=== PATIENT | female | born 1970 | race Caucasian/White ===

== ENCOUNTER 2017-11-06 02:22 | Emergency (ER) | payer MEDICAID ==
[~2017-11-06] VITALS: Ht 170.2 cm; Wt 101.5 kg
[~2017-11-06 02:22] MED LIST: ONDA8TAB9 PO
[2017-11-06 02:27] VITALS: BP 139/79
[2017-11-06] MEDS ORDERED: proparacaine 0.5% ophthalmic drops 15ml RIGHTEYE ONE (02:40)
[2017-11-06] MEDS ORDERED: benoxinate/fluorescein ophth drops 5ml bottle RIGHTEYE ONE (02:45)
== END 2017-11-06 04:06 | disposition home or self-care (01) ==
LOC: ER 02:23
DX: H57.11 Ocular pain, right eye (principal); Z56.0 Unemployment, unspecified; Z88.8 Allergy status to other drugs, medicaments and biological substances
CPT/HCPCS: 99282; J7030

== ENCOUNTER 2018-01-16 15:40 | Emergency (ER) | payer MEDICAID ==
[~2018-01-16] VITALS: Ht 170.2 cm; Wt 100.7 kg
[2018-01-16 15:43] VITALS: BP 132/76
== END 2018-01-16 16:57 | disposition home or self-care (01) ==
LOC: ER 15:41
DX: S60.222A Contusion of left hand, initial encounter (principal); Z88.8 Allergy status to other drugs, medicaments and biological substances; Z79.899 Other long term (current) drug therapy; Z56.0 Unemployment, unspecified; W01.0XXA Fall on same level from slipping, tripping and stumbling without subsequent striking against object, initial encounter; Y93.89 Activity, other specified; Y92.89 Other specified places as the place of occurrence of the external cause; Y99.8 Other external cause status
CPT/HCPCS: 73140; 99284

== ENCOUNTER 2018-07-15 11:44 | Emergency (ER) | payer MEDICAID ==
[~2018-07-15] VITALS: Ht 170.2 cm; Wt 99.8 kg
[2018-07-15 12:16] VITALS: BP 121/84
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
[2018-07-15] MEDS ORDERED: TRAM50TA2 PO (13:57)
== END 2018-07-15 14:14 | disposition home or self-care (01) ==
LOC: ER 11:44
DX: R51 Headache (principal); Z56.0 Unemployment, unspecified; Z88.8 Allergy status to other drugs, medicaments and biological substances
CPT/HCPCS: 99283

== ENCOUNTER 2018-10-25 14:58 | Outpatient (CLI) | payer MEDICARE, MEDICAID | END 2018-10-25 23:59 | disposition home or self-care (01) | LOC: VAS 14:58 | PROVIDERS: ATTEND Family Medicine | DX: R60.0 Localized edema (principal); M79.604 Pain in right leg; F17.200 Nicotine dependence, unspecified, uncomplicated | CPT/HCPCS: 93970 ==

== ENCOUNTER 2018-11-06 19:17 | Emergency (ER) | payer MEDICARE, MEDICAID ==
[~2018-11-06] VITALS: Ht 170.2 cm; Wt 104.5 kg
[2018-11-06 19:27] VITALS: BP 140/88
[2018-11-06] MEDS ORDERED: HYDROcodone/acetaminophen 5mg/325mg tablet PO ONE (20:50)
[2018-11-06] MEDS ORDERED: TRAM50TA2 PO (21:42)
== END 2018-11-06 22:08 | disposition home or self-care (01) ==
LOC: ER 19:17
DX: M79.604 Pain in right leg (principal); F17.200 Nicotine dependence, unspecified, uncomplicated; Z56.0 Unemployment, unspecified; Z88.6 Allergy status to analgesic agent; Z79.899 Other long term (current) drug therapy
CPT/HCPCS: 93971; 99284

== ENCOUNTER 2019-02-28 12:14 | Emergency (ER) | payer MEDICARE, MEDICAID ==
[~2019-02-28] VITALS: Ht 170.2 cm; Wt 105.0 kg
[2019-02-28 12:16] VITALS: BP 101/76
== END 2019-02-28 14:51 | disposition left against medical advice (07) ==
LOC: ER 12:14
DX: M79.606 Pain in leg, unspecified (principal); Z53.21 Procedure and treatment not carried out due to patient leaving prior to being seen by health care provider

== ENCOUNTER 2019-09-06 07:41 | Emergency (ER) | payer MEDICARE, MEDICAID ==
[~2019-09-06] VITALS: Ht 170.2 cm; Wt 96.6 kg
[2019-09-06 07:54] VITALS: BP 117/73
--- NOTE | 2019-09-06 08:21 | NUR ---
Pt also states rthat she believes she may be . Has also been around someone with similar symptoms.
[2019-09-06 08:40] LABS: BASOPHILS % (AUTO) 0.2 % (0-1); EOSINOPHILS # (AUTO) 0.2 X10'3 (0-0.9); EOSINOPHILS % (AUTO) 1.9 % (0-6); HEMOGLOBIN 13.4 g/dl (12.0-16.0); LYMPHOCYTES # (AUTO) 0.7 X10'3 (1.1-4.8); MEAN CORPUSCULAR HEMOGLOBIN 28.6 PG (27.0-31.0); MEAN CORPUSCULAR HGB CONC 33.6 g/dL (33.0-36.5); MEAN CORPUSCULAR VOLUME 85.1 FL (78-98); MEAN PLATELET VOLUME 8.1 FL (7.4-10.4); MONOCYTES # (AUTO) 0.4 X10'3 (0-0.9); MONOCYTES % (AUTO) 4.8 % (2-12); NEUTROPHILS # (AUTO) 7.2 X10'3 (1.8-7.7); NEUTROPHILS % (AUTO) 85.1 % (42-75); PLATELET COUNT 240 X10'3 (140-440); RED CELL DISTRIBUTION WIDTH 14.6 % (11.5-14.5); WHITE BLOOD COUNT 8.5 X10'3 (4.5-11.0)
[2019-09-06] MEDS ORDERED: LIDOcaine Viscous 15ml cup MM STA (08:47)
[2019-09-06] MEDS ORDERED: mag hydrox/Alum hydrox/simeth 30ml oral suspension PO ONE (08:50)
[2019-09-06] MEDS ORDERED: ondansetron 4mg rapidly disintigrating tab PO ONE (08:50)
[2019-09-06 09:00] LABS: ALANINE AMINOTRANSFERASE 30 U/L (12-78); ALBUMIN 3.5 G/DL (3.4-5.0); ALKALINE PHOSPHATASE 117 IU/L (46-116); ANION GAP 5 (8-16); ASPARTATE AMINO TRANSFERASE 21 U/L (10-37); BILIRUBIN,TOTAL 1.7 MG/DL (0.1-1.0); BLOOD UREA NITROGEN 21 MG/DL (7-18); BUN/CREATININE RATIO 25.6 (6.6-38.0); CALCIUM 8.3 MG/DL (8.5-10.1); CHLORIDE 107 MMOL/L (99-107); CREATININE 0.82 MG/DL (0.40-0.90); GLUCOSE 87 MG/DL (70-104); LIPASE 100 U/L (73-393); POTASSIUM 4.2 MMOL/L (3.5-5.1); SODIUM 141 MMOL/L (135-145); TOTAL CARBON DIOXIDE 29.1 MMOL/L (24-32); eGFR 75 ML/MIN
[2019-09-06 10:03] LABS: CLARITY,URINE SLIGHTLY CLOUDY (Clear); COLOR,URINE YELLOW (Yellow); GLUCOSE, URINE NEGATIVE (Neg); KETONES,URINE NEGATIVE (Neg); LEUKOCYTE ESTERASE ,URINE MODERATE (Neg); NITRITES, URINE NEGATIVE (Neg); OCCULT BLOOD,URINE SMALL (Neg); PROTEIN,URINE NEGATIVE (Neg); URINE HCG NEGATIVE (NEG); UROBILINOGEN,URINE 0.2 E.U/dL (0.2-1.0)
[2019-09-06 10:08] LABS: UA COLLECTION TYPE CLN CATCH MIDSTREAM
[2019-09-06 10:09] LABS: BACTERIA,URINE 3+ /HPF (Neg); MUCUS STRANDS FEW /LPF (Neg); RBC,URINE 0-2 /HPF (0-2); SQUAMOUS EPITHELIAL CELL,UR MANY /LPF (FEW); WBC,URINE 0-4 /HPF (0-4)
[2019-09-06] MEDS ORDERED: ONDA4TAB6 PO (10:14)
== END 2019-09-06 10:23 | disposition home or self-care (01) ==
LOC: ER 07:42
DX: R11.2 Nausea with vomiting, unspecified (principal); Z56.0 Unemployment, unspecified
CPT/HCPCS: 36415; 80053; 81001; 81025; 83690; 85025; 99284

== ENCOUNTER 2019-10-05 09:59 | Emergency (ER) | payer MEDICARE, MEDICAID ==
[~2019-10-05] VITALS: Ht 172.7 cm; Wt 106.0 kg
[~2019-10-05 09:59] MED LIST changes: +ONDA4TAB6 PO
[2019-10-05 10:45] LABS: CLARITY,URINE SLIGHTLY CLOUDY (Clear); COLOR,URINE YELLOW (Yellow); GLUCOSE, URINE NEGATIVE (Neg); KETONES,URINE NEGATIVE (Neg); LEUKOCYTE ESTERASE ,URINE NEGATIVE (Neg); NITRITES, URINE NEGATIVE (Neg); OCCULT BLOOD,URINE TRACE-INTACT (Neg); PH,URINE 7.5 (4.8-8.0); PROTEIN,URINE NEGATIVE (Neg); URINE HCG NEGATIVE (NEG)
[2019-10-05 10:47] LABS: UA COLLECTION TYPE CLN CATCH MIDSTREAM
[2019-10-05 10:49] LABS: BASOPHILS % (AUTO) 0.5 % (0-1); EOSINOPHILS # (AUTO) 0.2 X10'3 (0-0.9); EOSINOPHILS % (AUTO) 2.2 % (0-6); HEMATOCRIT 37.5 % (35.0-45.0); HEMOGLOBIN 12.5 g/dl (12.0-16.0); LYMPHOCYTES # (AUTO) 1.9 X10'3 (1.1-4.8); LYMPHOCYTES % (AUTO) 21.7 % (21-51); MEAN CORPUSCULAR HEMOGLOBIN 28.4 PG (27.0-31.0); MEAN CORPUSCULAR HGB CONC 33.4 g/dL (33.0-36.5); MEAN CORPUSCULAR VOLUME 85.1 FL (78-98); MEAN PLATELET VOLUME 8.1 FL (7.4-10.4); MONOCYTES # (AUTO) 0.9 X10'3 (0-0.9); NEUTROPHILS # (AUTO) 5.7 X10'3 (1.8-7.7); NEUTROPHILS % (AUTO) 65.6 % (42-75); PLATELET COUNT 260 X10'3 (140-440); RED BLOOD COUNT 4.41 X10'6 (4.20-5.60); RED CELL DISTRIBUTION WIDTH 15.2 % (11.5-14.5); WHITE BLOOD COUNT 8.7 X10'3 (4.5-11.0)
[2019-10-05 10:51] LABS: BACTERIA,URINE 1+ /HPF (Neg); MUCUS STRANDS NONE SEEN /LPF (Neg); RBC,URINE 0-2 /HPF (0-2); SQUAMOUS EPITHELIAL CELL,UR MANY /LPF (FEW); WBC,URINE 0-4 /HPF (0-4)
[2019-10-05] MEDS ORDERED: ketorolac trometh. 30mg/ml inj. IM ONE (10:55)
[2019-10-05] MEDS ORDERED: IBUP-1985 PO (10:57)
[2019-10-05 11:03] LABS: ALANINE AMINOTRANSFERASE 27 U/L (12-78); ALBUMIN 3.6 G/DL (3.4-5.0); ALBUMIN/GLOBULIN RATIO 0.9 (1.1-1.5); ALKALINE PHOSPHATASE 123 IU/L (46-116); AMYLASE 35 U/L (25-115); ANION GAP 4 (8-16); ASPARTATE AMINO TRANSFERASE 18 U/L (10-37); BLOOD UREA NITROGEN 11 MG/DL (7-18); BUN/CREATININE RATIO 13.8 (6.6-38.0); CALCIUM 8.6 MG/DL (8.5-10.1); CHLORIDE 106 MMOL/L (99-107); GLUCOSE 84 MG/DL (70-104); LIPASE 79 U/L (73-393); POTASSIUM 3.7 MMOL/L (3.5-5.1); SODIUM 141 MMOL/L (135-145); TOTAL CARBON DIOXIDE 31.3 MMOL/L (24-32); TOTAL PROTEIN 7.5 G/DL (6.4-8.2); eGFR 77 ML/MIN
[2019-10-05 11:34] VITALS: BP 135/74
== END 2019-10-05 11:38 | disposition home or self-care (01) ==
LOC: ER 09:59
DX: S39.012A Strain of muscle, fascia and tendon of lower back, initial encounter (principal); F17.200 Nicotine dependence, unspecified, uncomplicated; Z86.69 Personal history of other diseases of the nervous system and sense organs; Z59.0 Homelessness; Z56.0 Unemployment, unspecified; Z91.048 Other nonmedicinal substance allergy status; Z88.6 Allergy status to analgesic agent; Z88.8 Allergy status to other drugs, medicaments and biological substances; Z79.899 Other long term (current) drug therapy
CPT/HCPCS: 36415; 80053; 81001; 81025; 82150; 83690; 85025; 96372; 99283; J1885

== ENCOUNTER 2020-02-19 14:30 | Emergency (ER) | payer MEDICARE, MEDICAID ==
[~2020-02-19] VITALS: Ht 172.7 cm; Wt 81.8 kg
[~2020-02-19 14:30] MED LIST changes: +IBUP-1985 PO
[2020-02-19 14:33] VITALS: BP 125/73
[2020-02-19] MEDS ORDERED: NAPR-56 PO (14:45)
[2020-02-19] MEDS ORDERED: PENI250T2 PO (14:45)
== END 2020-02-19 15:04 | disposition home or self-care (01) ==
LOC: ER 14:31
DX: K04.7 Periapical abscess without sinus (principal); Z86.69 Personal history of other diseases of the nervous system and sense organs; Z59.0 Homelessness; Z56.0 Unemployment, unspecified; Z91.041 Radiographic dye allergy status; Z79.899 Other long term (current) drug therapy
CPT/HCPCS: 99283

== ENCOUNTER 2020-03-06 09:00 | Emergency (ER) | payer MEDICARE, MEDICAID ==
[~2020-03-06] VITALS: Ht 170.2 cm; Wt 118.2 kg
[~2020-03-06 09:00] MED LIST changes: +NAPR-56 PO
[2020-03-06 10:06] VITALS: BP 132/79
[2020-03-06 11:40] LABS: CLARITY,URINE CLEAR (Clear); COLOR,URINE YELLOW (Yellow); GLUCOSE, URINE NEGATIVE (Neg); KETONES,URINE NEGATIVE (Neg); LEUKOCYTE ESTERASE ,URINE NEGATIVE (Neg); NITRITES, URINE NEGATIVE (Neg); OCCULT BLOOD,URINE TRACE-LYSED (Neg); PROTEIN,URINE NEGATIVE (Neg); UROBILINOGEN,URINE 0.2 E.U/dL (0.2-1.0)
[2020-03-06 11:41] LABS: BASOPHILS # (AUTO) 0.1 X10'3 (0-0.2); BASOPHILS % (AUTO) 0.9 % (0-1); EOSINOPHILS # (AUTO) 0.2 X10'3 (0-0.9); EOSINOPHILS % (AUTO) 2.9 % (0-6); HEMATOCRIT 39.2 % (35.0-45.0); LYMPHOCYTES # (AUTO) 1.9 X10'3 (1.1-4.8); LYMPHOCYTES % (AUTO) 25.9 % (21-51); MEAN CORPUSCULAR HEMOGLOBIN 29.7 PG (27.0-31.0); MEAN CORPUSCULAR HGB CONC 33.1 g/dL (33.0-36.5); MEAN CORPUSCULAR VOLUME 89.5 FL (78-98); MEAN PLATELET VOLUME 8.3 FL (7.4-10.4); MONOCYTES # (AUTO) 0.7 X10'3 (0-0.9); MONOCYTES % (AUTO) 9.6 % (2-12); NEUTROPHILS # (AUTO) 4.5 X10'3 (1.8-7.7); NEUTROPHILS % (AUTO) 60.7 % (42-75); PLATELET COUNT 264 X10'3 (140-440); RED BLOOD COUNT 4.37 X10'6 (4.20-5.60); RED CELL DISTRIBUTION WIDTH 14.6 % (11.5-14.5); WHITE BLOOD COUNT 7.5 X10'3 (4.5-11.0)
[2020-03-06 11:44] LABS: UA COLLECTION TYPE CLN CATCH MIDSTREAM
[2020-03-06 11:45] LABS: BACTERIA,URINE NONE SEEN /HPF (Neg); MUCUS STRANDS NONE SEEN /LPF (Neg); RBC,URINE 0-2 /HPF (0-2); SQUAMOUS EPITHELIAL CELL,UR FEW /LPF (FEW); WBC,URINE NONE SEEN /HPF (0-4)
[2020-03-06 11:53] LABS: ALANINE AMINOTRANSFERASE 28 U/L (12-78); ALBUMIN 3.5 G/DL (3.4-5.0); ALKALINE PHOSPHATASE 108 IU/L (46-116); ANION GAP 5 (8-16); ASPARTATE AMINO TRANSFERASE 17 U/L (10-37); BILIRUBIN,TOTAL 0.6 MG/DL (0.1-1.0); BLOOD UREA NITROGEN 11 MG/DL (7-18); BUN/CREATININE RATIO 14.1 (6.6-38.0); CALCIUM 8.7 MG/DL (8.5-10.1); CHLORIDE 104 MMOL/L (99-107); CREATININE 0.78 MG/DL (0.40-0.90); GLUCOSE 83 MG/DL (70-104); POTASSIUM 4.3 MMOL/L (3.5-5.1); SODIUM 140 MMOL/L (135-145); TOTAL CARBON DIOXIDE 31.5 MMOL/L (24-32); TOTAL PROTEIN 7.1 G/DL (6.4-8.2); eGFR 79 ML/MIN
[2020-03-06 11:53] LABS: URINE AMPHETAMINE SCREEN NEGATIVE (Neg); URINE BARBITUATE SCREEN NEGATIVE (Neg); URINE BENZODIAZEPINES SCREEN NEGATIVE (Neg); URINE CANNABINOID SCREEN NEGATIVE (Neg); URINE COCAINE SCREEN NEGATIVE (Neg); URINE METHADONE SCREEN NEGATIVE (Neg); URINE OPIATE SCREEN NEGATIVE (Neg); URINE PHENCYCLIDINE SCREEN NEGATIVE (Neg)
[2020-03-06 12:40] LABS: URINE HCG NEGATIVE (NEG)
== END 2020-03-06 14:13 | disposition home or self-care (01) ==
LOC: ER 09:01
DX: F41.9 Anxiety disorder, unspecified (principal); F45.9 Somatoform disorder, unspecified; M79.10 Myalgia, unspecified site; K76.0 Fatty (change of) liver, not elsewhere classified; Z86.69 Personal history of other diseases of the nervous system and sense organs; Z56.0 Unemployment, unspecified; Z59.0 Homelessness; Z88.8 Allergy status to other drugs, medicaments and biological substances; Z79.899 Other long term (current) drug therapy
CPT/HCPCS: 36415; 74176; 80053; 80305; 81001; 81025; 84443; 85025; 99284

== ENCOUNTER 2020-05-22 13:43 | Emergency (ER) | payer MEDICARE, MEDICAID ==
[~2020-05-22] VITALS: Ht 170.2 cm; Wt 119.4 kg
[~2020-05-22 13:43] MED LIST changes: -NAPR-56 PO
[2020-05-22 13:56] VITALS: BP 126/83
[2020-05-22] MEDS ORDERED: IBUP-1984 PO (16:53)
== END 2020-05-22 17:31 | disposition home or self-care (01) ==
LOC: ER 13:44
DX: J02.9 Acute pharyngitis, unspecified (principal); M25.561 Pain in right knee; R50.9 Fever, unspecified; R05 Cough; Z20.828 Contact with and (suspected) exposure to other viral communicable diseases; Z86.69 Personal history of other diseases of the nervous system and sense organs; Z56.0 Unemployment, unspecified; Z59.0 Homelessness; Z88.8 Allergy status to other drugs, medicaments and biological substances; Z79.899 Other long term (current) drug therapy
CPT/HCPCS: 36415; 87635; 99283

== ENCOUNTER 2020-06-01 17:59 | Emergency (ER) | payer MEDICARE, MEDICAID ==
[~2020-06-01] VITALS: Ht 175.3 cm; Wt 111.9 kg
[2020-06-01 19:13] LABS: BASOPHILS # (AUTO) 0.1 X10'3 (0-0.2); BASOPHILS % (AUTO) 0.5 % (0-1); EOSINOPHILS # (AUTO) 0.6 X10'3 (0-0.9); EOSINOPHILS % (AUTO) 6.2 % (0-6); HEMATOCRIT 37.2 % (35.0-45.0); HEMOGLOBIN 12.3 g/dl (12.0-16.0); LYMPHOCYTES # (AUTO) 2.5 X10'3 (1.1-4.8); LYMPHOCYTES % (AUTO) 23.8 % (21-51); MEAN CORPUSCULAR HGB CONC 33.1 g/dL (33.0-36.5); MEAN CORPUSCULAR VOLUME 87.6 FL (78-98); MEAN PLATELET VOLUME 8.6 FL (7.4-10.4); MONOCYTES # (AUTO) 0.9 X10'3 (0-0.9); MONOCYTES % (AUTO) 8.6 % (2-12); NEUTROPHILS # (AUTO) 6.4 X10'3 (1.8-7.7); NEUTROPHILS % (AUTO) 60.9 % (42-75); PLATELET COUNT 300 X10'3 (140-440); RED BLOOD COUNT 4.24 X10'6 (4.20-5.60); RED CELL DISTRIBUTION WIDTH 13.7 % (11.5-14.5); WHITE BLOOD COUNT 10.5 X10'3 (4.5-11.0)
[2020-06-01 19:14] LABS: CLARITY,URINE CLEAR (Clear); COLOR,URINE YELLOW (Yellow); GLUCOSE, URINE NEGATIVE (Neg); KETONES,URINE NEGATIVE (Neg); LEUKOCYTE ESTERASE ,URINE TRACE (Neg); NITRITES, URINE NEGATIVE (Neg); OCCULT BLOOD,URINE TRACE-INTACT (Neg); PROTEIN,URINE NEGATIVE (Neg)
[2020-06-01 19:16] LABS: UA COLLECTION TYPE CLN CATCH MIDSTREAM
[2020-06-01 19:20] LABS: RBC,URINE 0-2 /HPF (0-2)
[2020-06-01 19:21] LABS: BACTERIA,URINE 2+ /HPF (Neg); HYALINE CASTS 0-3 /LPF (NEGATIVE); MUCUS STRANDS MODERATE /LPF (Neg); SQUAMOUS EPITHELIAL CELL,UR MODERATE /LPF (FEW)
[2020-06-01 19:26] LABS: ALANINE AMINOTRANSFERASE 33 U/L (12-78); ALBUMIN 3.4 G/DL (3.4-5.0); ALBUMIN/GLOBULIN RATIO 0.9 (1.1-1.5); ALKALINE PHOSPHATASE 129 IU/L (46-116); ANION GAP 7 (8-16); ASPARTATE AMINO TRANSFERASE 24 U/L (10-37); BILIRUBIN,TOTAL 0.2 MG/DL (0.1-1.0); BLOOD UREA NITROGEN 16 MG/DL (7-18); BUN/CREATININE RATIO 19.3 (6.6-38.0); CALCIUM 8.5 MG/DL (8.5-10.1); CHLORIDE 105 MMOL/L (99-107); CREATININE 0.83 MG/DL (0.40-0.90); GLUCOSE 111 MG/DL (70-104); LIPASE 104 U/L (73-393); POTASSIUM 4.1 MMOL/L (3.5-5.1); SODIUM 140 MMOL/L (135-145); TOTAL CARBON DIOXIDE 27.6 MMOL/L (24-32); TOTAL PROTEIN 7.2 G/DL (6.4-8.2); eGFR 73 ML/MIN
[2020-06-01] MEDS ORDERED: CEPH250T PO (19:52)
[2020-06-01] MEDS ORDERED: POLY17PO10 PO (19:53)
[2020-06-01 20:09] VITALS: BP 141/104
== END 2020-06-01 20:11 | disposition home or self-care (01) ==
LOC: ER 18:00
DX: N39.0 Urinary tract infection, site not specified (principal); R10.84 Generalized abdominal pain; K59.00 Constipation, unspecified; E86.0 Dehydration; F17.200 Nicotine dependence, unspecified, uncomplicated; Z86.69 Personal history of other diseases of the nervous system and sense organs; Z56.0 Unemployment, unspecified; Z59.0 Homelessness; Z88.8 Allergy status to other drugs, medicaments and biological substances; Z79.2 Long term (current) use of antibiotics; Z79.899 Other long term (current) drug therapy
CPT/HCPCS: 36415; 80053; 81001; 83690; 85025; 87088; 99284

== ENCOUNTER 2020-10-03 10:47 | Emergency (ER) | payer MEDICARE, MEDICAID ==
[~2020-10-03] VITALS: Ht 170.2 cm; Wt 94.0 kg
[2020-10-03 11:04] VITALS: BP 124/87
--- NOTE | 2020-10-03 12:43 | NUR ---
Second call, not in lobby
--- NOTE | 2020-10-03 13:41 | NUR ---
Third call, not in lobby
[2020-10-03] MEDS ORDERED: IBUP-1984 PO (14:37)
== END 2020-10-03 14:52 | disposition home or self-care (01) ==
LOC: ER 10:47
DX: I87.8 Other specified disorders of veins (principal); Z86.69 Personal history of other diseases of the nervous system and sense organs; Z59.0 Homelessness; Z56.0 Unemployment, unspecified; Z88.6 Allergy status to analgesic agent; Z79.899 Other long term (current) drug therapy
CPT/HCPCS: 99282

== ENCOUNTER 2020-10-11 09:46 | Emergency (ER) | payer MEDICARE, MEDICAID ==
[~2020-10-11] VITALS: Ht 170.2 cm; Wt 90.0 kg
[~2020-10-11 09:46] MED LIST changes: +IBUP-1984 PO
[2020-10-11 09:47] VITALS: BP 130/88
[2020-10-11 10:12] LABS: CLARITY,URINE CLOUDY (Clear); COLOR,URINE YELLOW (Yellow); GLUCOSE, URINE NEGATIVE (Neg); KETONES,URINE NEGATIVE (Neg); LEUKOCYTE ESTERASE ,URINE NEGATIVE (Neg); NITRITES, URINE NEGATIVE (Neg); OCCULT BLOOD,URINE TRACE-INTACT (Neg); PROTEIN,URINE NEGATIVE (Neg); UROBILINOGEN,URINE 0.2 E.U/dL (0.2-1.0)
[2020-10-11 10:13] LABS: URINE HCG NEGATIVE (NEG)
[2020-10-11 10:17] LABS: UA COLLECTION TYPE CLN CATCH MIDSTREAM
[2020-10-11 10:18] LABS: BACTERIA,URINE 1+ /HPF (Neg); MUCUS STRANDS FEW /LPF (Neg); RBC,URINE 0-2 /HPF (0-2); SQUAMOUS EPITHELIAL CELL,UR MANY /LPF (FEW); WBC,URINE 0-4 /HPF (0-4)
== END 2020-10-11 10:45 | disposition home or self-care (01) ==
LOC: ER 09:47
DX: R10.2 Pelvic and perineal pain (principal); G40.909 Epilepsy, unspecified, not intractable, without status epilepticus; Z91.041 Radiographic dye allergy status; Z79.899 Other long term (current) drug therapy; Z56.0 Unemployment, unspecified; Z59.0 Homelessness; Z85.9 Personal history of malignant neoplasm, unspecified
CPT/HCPCS: 81001; 81025; 99283

== ENCOUNTER 2020-12-12 13:55 | Emergency (ER) | payer MEDICARE, MEDICAID ==
[~2020-12-12] VITALS: Ht 170.2 cm; Wt 121.4 kg
[~2020-12-12 13:55] MED LIST changes: -IBUP-1984 PO
[2020-12-12] MEDS ORDERED: acetaminophen 325mg tablet PO ONE (15:15)
[2020-12-12 16:35] VITALS: BP 124/80
== END 2020-12-12 16:38 | disposition home or self-care (01) ==
LOC: ER 13:56
DX: M79.604 Pain in right leg (principal); G43.909 Migraine, unspecified, not intractable, without status migrainosus; Z56.0 Unemployment, unspecified; Z59.0 Homelessness; Z91.041 Radiographic dye allergy status; Z79.899 Other long term (current) drug therapy
CPT/HCPCS: 93971; 99284

== ENCOUNTER 2021-06-12 11:44 | Emergency (ER) | payer MEDICARE, MEDICAID ==
[~2021-06-12] VITALS: Ht 170.2 cm; Wt 95.0 kg
[2021-06-12] MEDS ORDERED: AMOX-422 PO (12:29)
[2021-06-12] MEDS ORDERED: ketorolac tromethamine 15mg/ml inj. IM ONE ×2 (12:30→13:05)
[2021-06-12] MEDS ORDERED: IBUP-1984 PO (12:34)
[2021-06-12 13:33] VITALS: BP 134/82
== END 2021-06-12 13:38 | disposition home or self-care (01) ==
LOC: ER 11:44
DX: K08.89 Other specified disorders of teeth and supporting structures (principal); G40.909 Epilepsy, unspecified, not intractable, without status epilepticus; Z56.0 Unemployment, unspecified; Z59.00 Homelessness unspecified; Z91.041 Radiographic dye allergy status; Z79.2 Long term (current) use of antibiotics; Z79.899 Other long term (current) drug therapy
CPT/HCPCS: 99283

== ENCOUNTER 2021-11-11 11:25 | Emergency (ER) | payer MEDICARE, MEDICAID ==
[~2021-11-11] VITALS: Ht 170.2 cm; Wt 77.0 kg
[2021-11-11 11:32] VITALS: BP 137/85
[2021-11-11 13:08] LABS: BASOPHILS # (AUTO) 0.1 X10'3 (0-0.2); BASOPHILS % (AUTO) 1.2 % (0-1); EOSINOPHILS # (AUTO) 0.3 X10'3 (0-0.9); EOSINOPHILS % (AUTO) 4.1 % (0-6); LYMPHOCYTES # (AUTO) 2.3 X10'3 (1.1-4.8); MEAN PLATELET VOLUME 8.5 FL (7.4-10.4); MONOCYTES # (AUTO) 0.6 X10'3 (0-0.9); NEUTROPHILS # (AUTO) 3.9 X10'3 (1.8-7.7); NEUTROPHILS % (AUTO) 53.7 % (42-75); PLATELET COUNT 369 X10'3 (140-440); WHITE BLOOD COUNT 7.2 X10'3 (4.5-11.0)
[2021-11-11 13:09] LABS: ALBUMIN 3.5 G/DL (3.4-5.0); ANION GAP 8 (8-16); BLOOD UREA NITROGEN 19 MG/DL (7-18); BUN/CREATININE RATIO 21.6 (6.6-38.0); CALCIUM 8.8 MG/DL (8.5-10.1); CHLORIDE 105 MMOL/L (99-107); CREATININE 0.88 MG/DL (0.40-0.90); GLUCOSE 77 MG/DL (70-104); SODIUM 140 MMOL/L (135-145); TOTAL CARBON DIOXIDE 26.6 MMOL/L (24-32); eGFR 68 ML/MIN
[2021-11-11 13:26] LABS: HEMATOCRIT 29.9 % (35.0-45.0); HEMOGLOBIN 9.2 g/dl (12.0-16.0); MEAN CORPUSCULAR HEMOGLOBIN 19.9 PG (27.0-31.0); MEAN CORPUSCULAR HGB CONC 30.6 g/dL (33.0-36.5); RED CELL DISTRIBUTION WIDTH 19.4 % (11.5-14.5)
[2021-11-11 13:45] LABS: HYPOCHROMASIA 2+; PLATELET ESTIMATE NORMAL
[2021-11-11 13:46] LABS: ANISOCYTOSIS 2+; MICROCYTOSIS 2+
[2021-11-11 13:49] LABS: ELLIPTOCYTES 1+; POLYCHROMASIA 1+
[2021-11-11 13:50] LABS: SCHISTOCYTES FEW
== END 2021-11-11 14:08 | disposition home or self-care (01) ==
LOC: ER 11:26
DX: I80.01 Phlebitis and thrombophlebitis of superficial vessels of right lower extremity (principal); D64.9 Anemia, unspecified; Z56.0 Unemployment, unspecified; Z59.00 Homelessness unspecified; Z91.041 Radiographic dye allergy status; Z79.899 Other long term (current) drug therapy
CPT/HCPCS: 36415; 80048; 85008; 85025; 93971; 99284

== ENCOUNTER 2021-12-07 17:58 | Emergency (ER) | payer MEDICARE, MEDICAID ==
[~2021-12-07] VITALS: Ht 170.2 cm; Wt 122.0 kg
[2021-12-07 18:45] VITALS: BP 146/85
== END 2021-12-07 19:13 | disposition home or self-care (01) ==
LOC: ER 17:59
DX: H92.03 Otalgia, bilateral (principal); Z86.69 Personal history of other diseases of the nervous system and sense organs; Z90.89 Acquired absence of other organs; Z56.0 Unemployment, unspecified; Z59.00 Homelessness unspecified; Z88.8 Allergy status to other drugs, medicaments and biological substances; Z79.899 Other long term (current) drug therapy
CPT/HCPCS: 99281

== ENCOUNTER 2022-04-19 13:27 | Emergency (ER) | payer MEDICARE, MEDICAID ==
[~2022-04-19] VITALS: Ht 170.2 cm; Wt 104.5 kg
[2022-04-19 15:48] VITALS: BP 133/70
[2022-04-19] MEDS ORDERED: HYDR-3965 PO (16:32)
[2022-04-19] MEDS ORDERED: CEPH250T PO (16:32)
== END 2022-04-19 16:50 | disposition home or self-care (01) ==
LOC: ER 13:27
DX: I80.02 Phlebitis and thrombophlebitis of superficial vessels of left lower extremity (principal); Z59.00 Homelessness unspecified; Z56.0 Unemployment, unspecified; Z88.8 Allergy status to other drugs, medicaments and biological substances; Z79.899 Other long term (current) drug therapy; Z79.1 Long term (current) use of non-steroidal anti-inflammatories (NSAID)
CPT/HCPCS: 82948; 93971; 99284

== ENCOUNTER 2022-06-28 19:53 | Emergency (ER) | payer MEDICARE, MEDICAID ==
[~2022-06-28] VITALS: Ht 171.4 cm; Wt 119.1 kg
[2022-06-28 20:44] VITALS: BP 155/92
== END 2022-06-29 01:44 | disposition home or self-care (01) ==
LOC: ER 19:54
DX: J06.9 Acute upper respiratory infection, unspecified (principal); Z20.822 Contact with and (suspected) exposure to COVID-19; R07.81 Pleurodynia; Z87.891 Personal history of nicotine dependence; Z59.00 Homelessness unspecified; Z56.0 Unemployment, unspecified; Z79.899 Other long term (current) drug therapy; Z91.041 Radiographic dye allergy status
CPT/HCPCS: 87502; 87503; 87635; 99283; C9803

== ENCOUNTER 2024-03-17 11:54 | Emergency (ER) | payer BC, MEDICAID ==
[~2024-03-17] VITALS: Ht 170.2 cm; Wt 124.6 kg
--- NOTE | 2024-03-17 13:10 | NUR ---
pt ambulated to the bathroom, urine collected and sent to lab.
[2024-03-17 13:16] LABS: BILIRUBIN,URINE NEGATIVE (Neg); CLARITY,URINE CLOUDY (Clear); COLOR,URINE YELLOW (Yellow); GLUCOSE, URINE NEGATIVE (Neg); KETONES,URINE TRACE mg/dl (Neg); LEUKOCYTE ESTERASE ,URINE NEGATIVE (Neg); NITRITES, URINE POSITIVE (Neg); OCCULT BLOOD,URINE NEGATIVE (Neg); PROTEIN,URINE TRACE mg/dl (Neg); UROBILINOGEN,URINE 0.2 E.U/dL (0.2-1.0)
[2024-03-17 13:17] LABS: UA COLLECTION TYPE VOIDED
[2024-03-17] MEDS: ketorolac trometh 15mg/ml vial 15 MG/ML ML IM ONE (13:17)
[2024-03-17 13:21] LABS: HYALINE CASTS >30 /LPF (NEGATIVE); SQUAMOUS EPITHELIAL CELL,UR MANY /LPF (FEW)
[2024-03-17 13:22] LABS: BACTERIA,URINE 2+ /HPF (Neg); MUCUS STRANDS MANY /LPF (Neg)
[2024-03-17 13:23] LABS: RBC,URINE 0-2 /HPF (0-2)
[2024-03-17] MEDS ORDERED: HYDR-3965 PO (13:41)
[2024-03-17] MEDS ORDERED: CEPH-585 PO (13:41)
[2024-03-17] MEDS ORDERED: NAPR-996 PO (13:41)
[2024-03-17 14:20] VITALS: BP 131/78; PULSE 56; RESP 16; TEMP 97.4; O2SAT 98
== END 2024-03-17 14:23 | disposition home or self-care (01) ==
LOC: ER 11:55
DX: M43.16 Spondylolisthesis, lumbar region (principal); M47.896 Other spondylosis, lumbar region; N39.0 Urinary tract infection, site not specified; Z91.018 Allergy to other foods; Z79.899 Other long term (current) drug therapy; Z79.1 Long term (current) use of non-steroidal anti-inflammatories (NSAID); Z59.00 Homelessness unspecified; Z56.0 Unemployment, unspecified
CPT/HCPCS: 72100; 81001; 96372; 99284; J1885